=== PATIENT | male | born 1945 | race Caucasian/White ===

== ENCOUNTER → 2020-03-24 | Outpatient (CLI) | payer MEDICARE, BC ==
[2014-06-30 10:46] VITALS: BP 153/80
[~2020-03-24] MED LIST: ASPI-630 PO; ASPI81TA59 PO; CITA10TA8 PO; FEXO180T81 PO; IOHEXOL 240 MG/ML 50ML VIAL. ONE; IOHEXOL 300 MG/ML 75 ML VIAL. IV ONE; NIAC500T PO; TAMS0.4C97 PO; ZOLP5TAB PO
[2020-03-24 08:49] LABS: CREATININE 1.1 mg/dL (0.7-1.3); GFR 65.3
--- NOTE | 2020-03-24 10:37 | RAD ---
PQRS Compliance Statement: One or more of the following individualized dose reduction techniques were utilized for this examination: 1. Automated exposure control 2. Adjustment of the mA and/or kV according to patient size 3. Use of iterative reconstruction technique CT abdomen/pelvis with contrast 03/24/2020 9:00 AM INDICATION: Mass seen on bladder on prior CT COMPARISON: None available TECHNIQUE: Multiple axial CT images of the abdomen and pelvis were obtained after the intravenous administration of 75 mL Omnipaque 300. Coronal and sagittal reformats are provided. FINDINGS: There is a calcified granuloma in the inferior lingula measuring 8 mm. Heart size is within normal limits. Simple hepatic cyst measures 2.0 cm. No suspicious hepatic lesion is identified. There is focal hypoattenuation along the gallbladder fossa which most favors focal fatty infiltration. Spleen, bilateral adrenal glands and gallbladder are normal in appearance. Portal venous system is widely patent. Abdominal aorta is normal in course and caliber with mild calcified atheromatous plaque. No pathologically enlarged lymph nodes are identified in abdomen and pelvis. Calcified peripancreatic lymph node is suspected measuring 7 mm (series 2, image 27). Findings are atypical location for calcified aneurysm. There is no free fluid or free intraperitoneal air. There is symmetric enhancement of the kidneys. No suspicious renal mass or hydronephrosis. No calculi identified within the ureters or urinary bladder. The prostate is enlarged measuring 5.3 x 5.0 cm. TURP defect is identified. There is nodular appearance at the base of the urinary bladder, suspected to represent benign prostatic hypertrophy. Mild bladder wall thickening could reflect chronic outlet obstruction. Oral contrast was administered. Suture line is identified at the rectosigmoid junction. No bowel obstruction or inflammation. Appendix is not definitively visualized. No pericecal and plantar changes are identified. No suspicious osseous abnormality is identified. IMPRESSION: Prostatomegaly with changes suggestive of benign prostatic hypertrophy given nodular appearance of the base of the urinary bladder. A definite bladder mass is not visualized. Bladder wall thickening may reflect chronic outlet obstruction. TURP defect is present. Electronically signed by: Meghna Summers MD (03/24/2020 10:34 AM) [facility]
== END ==
LOC: CT 08:00
PROVIDERS: ATTEND Emergency Medicine
DX: R93.5 Abnormal findings on diagnostic imaging of other abdominal regions, including retroperitoneum (principal); J98.4 Other disorders of lung; J84.10 Pulmonary fibrosis, unspecified; K76.89 Other specified diseases of liver; N40.0 Benign prostatic hyperplasia without lower urinary tract symptoms
CPT/HCPCS: 36415; 74177; 82565; 84520; Q9967

== ENCOUNTER → 2020-12-01 | Outpatient (CLI) | payer MEDICARE, BC ==
[2014-06-30 10:46] VITALS: BP 153/80
[~2020-12-01] MED LIST changes: -IOHEXOL 240 MG/ML 50ML VIAL. ONE; -IOHEXOL 300 MG/ML 75 ML VIAL. IV ONE
--- NOTE | 2020-12-01 17:07 | RAD ---
XR CERVICAL SPINE 4-5V History: Reason: MOVING INJURY IN / . Instructions: / History: Technique: 5 views cervical spine. Comparison: None. Findings: Normal vertebral body height and alignment. Fragmentation of the anterior inferior osteophytes at C4, C5 and C6. Mild degenerative disc changes most prominent C5-C6 and C6-C7. Mild facet arthropathy. Pr evertebral soft tissues unremarkable. Normal alignment C1 on C2. Impression: 1. Fragmentation of the anterior inferior osteophytes at C4, C5 and C6, may relate to degenerative c hanges. If persistent clinical concern for pain, CT or MRI can further evaluate. 2. Mild cervical spondylosis. Electronically signed by: Deepak Lyman DO (12/01/2020 5:04 PM) [id number]
== END ==
LOC: RAD 14:39
PROVIDERS: ATTEND Specialist
DX: M47.812 Spondylosis without myelopathy or radiculopathy, cervical region (principal); M25.78 Osteophyte, vertebrae
CPT/HCPCS: 72050